=== PATIENT | female | born 1995 | race Caucasian/White ===

== ENCOUNTER 2023-07-15 08:32 | Outpatient (AMB) | payer OTHER, SELFPAY ==
--- NOTE | 2023-07-15 08:34 | A.OFFPC_ITS ---
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 Transferring care from Dr Abdoul Wright ([facility] [place]). Medical records have been requested and have not received. County Program Technician Required: No Log Haul Operator: Not Required per policy Accompanied by: Self / Same As Patient Allergies No Known Allergies Allergy (Verified 07/15/23 09:09) Medication List - Last Reconciled 07/15/23 by Suraj Houston MD albuterol sulfate 90 mcg/actuation 1 inh inhalation BID-TID dulaglutide (Trulicity) 1.5 mg (0.5 mL) subcut QWEEK metformin 500 mg PO BID norethindrone (contraceptive) (Renee) 0.35 mg PO DAILY tretinoin 0.05% 1 appl topical BEDTIME Tobacco use date assessed: 07/15/23 Dental Screening Dental Screen Date: 07/15/23 Did you have a dental visit in the last 12 months?: No Did you have a dental problem in the last 6 months where you did not have access to dental care?: No Was dental information given to patient?: No HPI 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 Patient has relocated from [place], [place] 15 months ago. She gives history of type 2 diabetes which was diagnosed at the age 24. Patient was put on metformin and Trulicity that she has been taking till she ran out a few weeks ago. In addition patient gives history of reactive airway disease and acne. Patient would like to restart all her medications. 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 History of marijuana use and occasional tobacco use. Denies any substance use. [facility] Medical History (Updated 07/15/23 @ 09:14 by Suraj Houston MD) Cystic acne Tobacco use disorder Marijuana use Diabetes mellitus Surgical History History of myomectomy Family History Other Mental health disorder Social History (Updated 07/15/23 @ 08:47 by SADIQ Gonzalez) Housing: House Alcohol intake: current Alcohol intake frequency: a few times a month Patient Tobacco Use Status: Current someday Tobacco user Tobacco use type: Cigarette Cigarettes Per Day: 3 e-Cigarette/Vaping Use: Never Used Second Hand Smoke Exposure: Yes Substance Use Type: Marijuana service: No Current occupational status: employed 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 1. Little interest or pleasure in doing things: nearly every day 2. Feeling down, depressed, or hopeless: several days 3. Trouble falling or staying asleep, or sleeping too much: nearly every day 4. Feeling tired or having little energy: several days 5. Poor appetite or overeating: several days 6. Feeling bad about yourself - or that you are a failure or have let yourself or your family down: several days 7. Trouble concentrating on things, such as reading the newspaper or watching television: more than half the days 8. Moving or speaking so slowly that other people could have noticed. Or the opposite - being so fidgety or restless that you have been moving around a lot more than usual: not at all 9. Thoughts that you would be better off or of hurting yourself in some way: not at all Total score: 12 Depression Screening Interpretation: Positive Depression Screening Follow-up: Existing condition Depression Screening Done: Yes Source: Developed by Drs. Boaz Anderson, Lien Plummer, Pawel Crain and colleagues, with an educational daisy from [employer]. Thrive Questionnaire Date Thrive assessed: 07/15/23 I am a: Patient What is your living situation today?: I have a steady place to live Within the past 12 months, did the food you bought not last and you didn't have the money to get more?: Never true Within the past 12 months, did you worry whether your food would run out before you got money to buy more?: Never true Do you have trouble paying for medicines?: No Do you have trouble getting transportation to medical appointments?: No Do you have trouble paying your heating and electricity bill?: No Do you have trouble taking care of your child, family member or friend?: No Do you have trouble with day-to-day activities such as bathing, preparing meals, shopping, managing finances, etc.?: No Are you currently unemployed and looking for a job?: No Are you interested in more education?: No AUDIT C Alcohol Use Questionnaire (AUDIT-C) 1. How often do you have a drink containing alcohol?: Monthly or less 2. How many drinks containing alcohol do you have on a typical day when you are drinking?: 1 or 2 Total Score: 1 TETO-7 AMB Questionnaire TETO-7 Date TETO - 7 assessed: 07/15/23 Feeling nervous, anxious, or on edge: 1 = Several days Not being able to stop or control worryin = Nearly every day Worrying too much about different things: 3 = Nearly every day Trouble relaxin = More than half the days Being so restless that it is hard to sit still: 0 = Not at all Becoming easily annoyed or irritable: 3 = Nearly every day Feeling afraid as if something awful might happen: 1 = Several days Total TETO-7 score (0-4 normal; 5-9 mild; 10-14 moderate; 15-21 severe): 13 Source: Developed by Drs. Boaz Anderson, Lien Plummer, Pawel Crain and colleagues, with an educational daisy from [employer]. Physical exam (Primary Care) Vital Signs: Last Vital Signs Pulse 92 07/15/23 08:36 BP 130/72 07/15/23 08:51 Pulse Ox 96 07/15/23 08:36 Oxygen Delivery Method Room Air 07/15/23 08:36 BMI result Body Mass Index 30.3 Tobacco/Smoking Status: Tobacco use Status Tobacco use date assessed 07/15/23 07/15/23 08:52 Patient Tobacco Use Status Current someday Tobacco 07/15/23 08:52 Tobacco use type Cigarette 07/15/23 08:52 e-Cigarette/Vaping Use Never Used 07/15/23 08:52 Are you ready to quit: No Tobacco cessation counseling provided: No PHQ-9: PHQ-9 Score PHQ-9: Total score 12 07/15/23 08:52 Depression Screening Interpretation: Positive Depression Screening Follow-up: Existing condition Thrive Assessment: Date of Thrive Assessment Date Thrive assessed 07/15/23 07/15/23 08:52 Const General: cooperative and healthy appearing Nutritional Appearance: well nourished Orientation/consciousness: patient oriented x3 Limitations: no limitations HENMT Head: Yes normal to inspection Eyes General: appearance normal, both eyes and all related structures Neck Neck: Yes normal visual inspection Chest Chest palpation & inspection: normal palpation of entire chest wall Resp Effort & Inspection: normal respiratory effort Neuro General: patient oriented x3 Assessment and Plan Assessment & Plan (1) Diabetes mellitus: Code(s): E11.9 - Type 2 diabetes mellitus without complications Plan: Blood work including A1c has been ordered. Medications including metformin and Trulicity have been reordered. Based on the results, the dosage will be adjuste d. (2) Marijuana use: Code(s): F12.90 - Cannabis use, unspecified, uncomplicated Plan: Patient was advised abstinence. (3) Tobacco use disorder: Code(s): F17.200 - Nicotine dependence, unspecified, uncomplicated (4) Cystic acne: Code(s): L70.0 - Acne vulgaris Plan: Patient uses the control pill and her acne is controlled. The same has been prescribed. Orders: Orders Liver Panel Today E11.9 - Type 2 diabetes mellitus without complications Basic Metabolic Panel Today E11.9 - Type 2 diabetes mellitus without complications Complete Blood Count no Diff Today E11.9 - Type 2 diabetes mellitus without complications Microalbumin, Random (w Creat) Today E11.9 - Type 2 diabetes mellitus without complications UA and rflx microscopic Today E11.9 - Type 2 diabetes mellitus without complications Lipid Panel Today E11.9 - Type 2 diabetes mellitus without complications Hemoglobin A1c Today E11.9 - Type 2 diabetes mellitus without complications Glutamic acid decarboxylase Ab Today E11.9 - Type 2 diabetes mellitus without complications Insulin Auto Antibody Today E11.9 - Type 2 diabetes mellitus without complications Medications: New metformin 500 mg PO BID 180 tabs 1RF albuterol sulfate 90 mcg/actuation 1 inh inhalation BID-TID 8.5 grams 1RF norethindrone (contraceptive) (Renee) 0.35 mg PO DAILY 84 tabs 0RF dulaglutide (Trulicity) 1.5 mg (0.5 mL) subcut QWEEK 2 mL 0RF Coding Level of Care Code New Pt Level 4 (98918) Diagnoses Diabetes mellitus E11.9 Marijuana use F12.90 Tobacco use disorder F17.200 Cystic acne L70.0
[2023-07-15 08:36] VITALS: BP 150/80; PULSE 92; O2SAT 96; BMI 30.3
[2023-07-15 08:51] VITALS: BP 130/72
== END 2023-07-15 09:09 | disposition home or self-care (01) ==
PROVIDERS: PCP Internal Medicine; Visit Provider Internal Medicine
DX: E11.9 Type 2 diabetes mellitus without complications (principal); F12.90 Cannabis use, unspecified, uncomplicated; F17.200 Nicotine dependence, unspecified, uncomplicated; L70.0 Acne vulgaris
CPT/HCPCS: 99204

== ENCOUNTER 2023-07-15 09:15 | Outpatient (REF) | payer OTHER, SELFPAY ==
[2023-07-15 09:55] LABS: Hematocrit 48.1 % (37.0-47.0); Mean Corpuscular HGB Conc 33.3 g/dl (31.0-35.0); Mean Corpuscular Hemoglobin 28.2 pg (27.0-33.0); Mean Corpuscular Volume 84.7 fL (80.0-98.0); Mean Platelet Volume 9.9 fL (9.4-12.3); Platelet Count 432 X10*3/uL (160-400); Red Blood Count 5.68 X10*6/uL (4.20-5.50); Red Cell Distribution Width 12.9 % (11.0-16.0); White Blood Count 8.2 X10*3/uL (4.8-10.8)
[2023-07-15 10:09] LABS: Estimated Average Glucose 318 mg/dL; Hemoglobin A1c % 12.7 % (<6.0)
[2023-07-15 10:24] LABS: Alanine Aminotransferase 33 U/L (0-31); Alkaline Phosphatase 116 U/L (39-117); Anion Gap 13 (12-20); Aspartate Amino Transferase 19 U/L (5-31); Bilirubin Direct 0.1 mg/dL (0.0-0.5); Bilirubin Total 0.3 mg/dL (0.0-1.0); Blood Urea Nitrogen 9 mg/dL (9-16); Calcium 9.8 mg/dL (8.4-10.2); Carbon Dioxide 27 mmol/L (22-29); Chloride 102 mmol/L (96-108); Cholesterol 152 mg/dL (<200); Estimated Glomerular Filt Rate > 60; Glucose Random 267 mg/dL (60-115); HDL Cholesterol 34 mg/dL (>40); LDL Cholesterol Calculated 105 mg/dL (<100); Potassium 3.8 mmol/L (3.3-5.1); Sodium 138 mmol/L (135-145); Total Protein 7.8 g/dL (6.5-8.0); Triglycerides 69 mg/dL (<150)
[2023-07-15 10:27] LABS: Appearance Urine Cloudy; Glucose Urine UA >=1000 mg/dL (Negative); Leukocyte Esterase Urine Trace (Negative); Nitrite Urine Negative (Negative); PH 5.5 (5.0-9.0); Specific Gravity - Urine >= 1.030 (1.005-1.025); UMIC TRIGGER UA YES; Urine Blood Large (3+) (Negative); Urine Ketones Trace mg/dL (Negative); Urine Protein 30 (1+) mg/dL (Neg-Trace)
[2023-07-15 10:28] LABS: Color Urine Dark Yellow
[2023-07-15 10:29] LABS: Bacteria Urine None Seen (None Seen); Hyaline Casts Urine 0-2 /LPF (0-2); RBC Urine >20 /HPF (0-2)
[2023-07-15 11:16] LABS: Microalbum/Creatinine Ratio Ur 35.1 ug/mg cr (<30)
[2023-07-18 18:14] LABS: Glutamic acid decarboxylase Ab <5 IU/mL (<5)
[2023-07-30 02:58] LABS: Insulin Auto Antibody <0.4 U/mL (<0.4)
== END 2023-07-15 09:16 | disposition home or self-care (01) ==
LOC: HO.LAB 09:15
PROVIDERS: PCP Internal Medicine; Visit Provider Internal Medicine
DX: E11.9 Type 2 diabetes mellitus without complications (principal)
CPT/HCPCS: 36415; 80048; 80061; 80076; 81001; 82043; 82570; 83036; 85027; 86337; 86341

== ENCOUNTER 2023-11-03 08:55 | Outpatient (AMB) | payer OTHER, SELFPAY ==
--- NOTE | 2023-11-03 09:10 | MHC.PC.OV ---
Vital Signs 11/03/23 09:11 Height 5 ft 2.5 in Weight 167 lb 2 oz BMI 30.1 BP 122/60 Blood Pressure Location Rt brachial Position Sitting Pulse 88 Pulse Source Pulse Oximeter Pulse Oximetry (%) 97 Oxygen Delivery Method Room Air Intake Visit Reasons: Follow up Intake Note: Patient is here to follow up on DM, Med review. Hair Tinter Required: No Piping Drafter: Not Required per policy Accompanied by: Self / Same As Patient Allergies No Known Allergies Allergy (Verified 11/03/23 09:11) Tobacco use date assessed: 11/03/23 Dental Screening Dental Screen Date: 07/15/23 HPI Follow up HPI Details 28-year-old female returns to the office to discuss her chronic medical conditions. Patient's blood sugar continues to be in the 300 range. She has not checking her blood sugars often. Since last office visit, patient has not fill the Trulicity. She reports there is a general shortage in the area. She has only been taking metformin and that to not regularly. She often forgets the night dosage. Patient gives history of anxiety and depression. She used to be on Zoloft in the past. Would like to see a therapist. [facility] Medical History (Updated 11/03/23 @ 10:03 by Suraj Houston MD) Generalized anxiety disorder Cystic acne Tobacco use disorder Marijuana use Diabetes mellitus Surgical History History of myomectomy Family History Other Mental health disorder Social History (Updated 11/03/23 @ 09:17 by SADIQ Gonzalez) Housing: House Alcohol intake: current Alcohol intake frequency: holidays/special occasions only Patient Tobacco Use Status: Current everyday Tobacco user Tobacco use type: Cigarette Cigarettes Per Day: 3 e-Cigarette/Vaping Use: Never Used Second Hand Smoke Exposure: Yes Substance Use Type: Marijuana service: No Current occupational status: employed 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 needs: No Hearing needs: No Vision needs: Yes (glasses) Questionnaire Thrive Questionnaire Date Thrive assessed: 07/15/23 TETO-7 AMB Questionnaire TETO-7 Date TETO - 7 assessed: 11/03/23 Feeling nervous, anxious, or on edge: 3 = Nearly every day Not being able to stop or control worryin = More than half the days Worrying too much about different things: 2 = More than half the days Trouble relaxin = Nearly every day Being so restless that it is hard to sit still: 0 = Not at all Becoming easily annoyed or irritable: 1 = Several days Feeling afraid as if something awful might happen: 0 = Not at all Total TETO-7 score (0-4 normal; 5-9 mild; 10-14 moderate; 15-21 severe): 11 Source: Developed by Drs. Boaz Anderson, Lien Plummer, Pawel Crain and colleagues, with an educational daisy from [facility]. Physical exam (Primary Care) Vital Signs: Last Vital Signs Pulse 88 11/03/23 09:11 BP 122/60 11/03/23 09:11 Pulse Ox 97 11/03/23 09:11 Oxygen Delivery Method Room Air 11/03/23 09:11 BMI result Body Mass Index 30.1 Tobacco/Smoking Status: Tobacco use Status Tobacco use date assessed 11/03/23 11/03/23 09:19 Patient Tobacco Use Status Current everyday Tobacco 11/03/23 09:19 Tobacco use type Cigarette 11/03/23 09:19 e-Cigarette/Vaping Use Never Used 11/03/23 09:19 Thrive Assessment: Date of Thrive Assessment Date Thrive assessed 07/15/23 11/03/23 09:19 Const General: cooperative and healthy appearing Nutritional Appearance: well nourished Orientation/consciousness: patient oriented x3 Limitations: no limitations HENMT Head: Yes normal to inspection Eyes General: appearance normal, both eyes and all related structures Neck Neck: Yes normal visual inspection Chest Chest palpation & inspection: normal palpation of entire chest wall Resp Effort & Inspection: normal respiratory effort Skin Other: Face: Cystic acne on the center of the forehead. Several erythematous lesion, cystic lesions and some pustular lesions near the chin. Neuro General: patient oriented x3 Results AMB Hemoglobin A1c AMB Hemoglobin A1c 13.3 % Last Edit by SADIQ Gonzalez on 11/03/23 09:22 Results Reviewed Results Reviewed: Laboratory Last Values Hgb A1c (Clinic) 13.3 % (4.0-6.0) H 11/03/23 09:10 Assessment and Plan Assessment & Plan (1) Cystic acne: Code(s): L70.0 - Acne vulgaris Plan: Under normal circumstances, antibiotic and topical treatment would be prescribed. However with new diabetes medications being added today this treatment is deferred. (2) Tobacco use disorder: Code(s): F17.200 - Nicotine dependence, unspecified, uncomplicated Plan: Counseling on plans to quit smoking. (3) Diabetes mellitus: Code(s): E11.9 - Type 2 diabetes mellitus without complications Plan: Patient was encouraged to be more compliant with medications. She is very reluctant to start insulin. A1c is greater than 12. Trulicity is in shortage and not easily available. I increase the metformin dosage to 2 g once a day. Extended release metformin ordered. Jardiance 25 mg added to the regimen. Patient was encouraged to exercise 1 hour a day and follow an ADA diet. (4) Generalized anxiety disorder: Code(s): F41.1 - Generalized anxiety disorder Plan: Community navigator has been contacted for therapy referral. Medication again has been deferred. Will start medications after her blood sugars are under proper control. Orders: Orders AMB Hemoglobin A1c Today E11.9 - Type 2 diabetes mellitus without complications Medications: New metformin ER 2,000 mg (2 x 1,000 mg) PO DAILY 180 tabs 0RF empagliflozin (Jardiance) 25 mg PO DAILY 90 tabs 1RF enalapril maleate 10 mg PO DAILY 90 tabs 1RF Discontinued metformin Discontinued Reason: Doctor's Order 500 mg PO BID 180 tabs 1RF Coding Level of Care Code Est Pt Level 4 (16782) Diagnoses Cystic acne L70.0 Tobacco use disorder F17.200 Diabetes mellitus E11.9 Generalized anxiety disorder F41.1
[2023-11-03 09:11] VITALS: BP 122/60; PULSE 88; O2SAT 97; BMI 30.1
== END 2023-11-03 09:53 | disposition home or self-care (01) ==
PROVIDERS: PCP Internal Medicine; Visit Provider Internal Medicine
DX: L70.0 Acne vulgaris (principal); F17.200 Nicotine dependence, unspecified, uncomplicated; E11.9 Type 2 diabetes mellitus without complications; F41.1 Generalized anxiety disorder
CPT/HCPCS: 83036; 99214

== ENCOUNTER 2023-11-25 09:51 | Outpatient (AMB) | payer OTHER, SELFPAY ==
--- NOTE | 2023-11-25 09:54 | MHC.PC.OV ---
Vital Signs 11/25/23 09:55 Height 5 ft 2.5 in Weight 161 lb 8 oz BMI 29.1 BP 126/74 Blood Pressure Location Lt brachial Position Sitting Pulse 75 Pulse Source Pulse Oximeter Pulse Oximetry (%) 98 Oxygen Delivery Method Room Air Intake Visit Reasons: 1 Month F/U Intake Note: Patient is here to follow up on DM, TETO. 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 Required: No Hot Room Attendant: Not Required per policy Accompanied by: Self / Same As Patient Allergies No Known Allergies Allergy (Verified 11/25/23 10:37) Medication List - Last Reconciled 11/25/23 by Suraj Houston MD albuterol sulfate 90 mcg/actuation 1 inh inhalation BID-TID blood sugar diagnostic ([employer] Ultra Test strips) test once daily blood-glucose meter,continuous (DexTrueLens G7 [employer] Safety And Health Specialist) As directed blood-glucose sensor (Dexcom G7 Sensor device) As directed dulaglutide (Trulicity) 1.5 mg (0.5 mL) subcut QWEEK empagliflozin (Jardiance) 25 mg PO DAILY enalapril maleate 10 mg PO DAILY insulin glargine (Lantus Solostar U-100 Insulin) 10 units (0.1 mL) subcut QPM lancets ([employer]ant PowerTouch UltraSoft 2 Lancet) test once daily metformin ER 2,000 mg (4 x 500 mg) PO DAILY norethindrone (contraceptive) (Renee) 0.35 mg PO DAILY pen needle, diabetic (Comfort EZ Pen [place]) As directed tretinoin 0.025% 1 appl topical BEDTIME Tobacco use date assessed: 11/25/23 Dental Screening Dental Screen Date: 07/15/23 HPI 1 Month F/U HPI Details 28-year-old female presents to the office for a follow-up visit. Since last office visit, patient has not received the continues glucose monitor. Requires an insurance authorization. She brings her blood sugar readings that she has been checking with the traditional way. Her postprandial blood sugar is greater than 200. She also has not received the Trulicity because of the shortage. With the metformin and Jardiance, her blood sugars have come down moderately. [facility] Medical History (Updated 11/03/23 @ 10:03 by Suraj Houston MD) Generalized anxiety disorder Cystic acne Tobacco use disorder Marijuana use Diabetes mellitus Surgical History History of myomectomy Family History Other Mental health disorder Social History Housing: House Alcohol intake: current Alcohol intake frequency: holidays/special occasions only Patient Tobacco Use Status: Current everyday Tobacco user Tobacco use type: Cigarette Cigarettes Per Day: 3 e-Cigarette/Vaping Use: Never Used Second Hand Smoke Exposure: Yes Substance Use Type: Marijuana service: No Current occupational status: employed 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 Boaz Anderson, Lien Plummer, Pawel Crain and colleagues, with an educational daisy from [employer]. Physical exam (Primary Care) Vital Signs: Last Vital Signs Pulse 75 11/25/23 09:55 BP 126/74 11/25/23 09:55 Pulse Ox 98 11/25/23 09:55 Oxygen Delivery Method Room Air 11/25/23 09:55 BMI result Body Mass Index 29.1 Tobacco/Smoking Status: Tobacco use Status Tobacco use date assessed 11/25/23 11/25/23 09:58 Patient Tobacco Use Status Current everyday Tobacco 11/25/23 09:58 Tobacco use type Cigarette 11/25/23 09:58 e-Cigarette/Vaping Use Never Used 11/25/23 09:58 Thrive Assessment: Date of Thrive Assessment Date Thrive assessed 07/15/23 11/25/23 09:58 Const General: cooperative and healthy appearing Nutritional Appearance: well nourished Orientation/consciousness: patient oriented x3 Limitations: no limitations HENMT Head: Yes normal to inspection Eyes General: appearance normal, both eyes and all related structures Neck Neck: Yes normal visual inspection Chest Chest palpation & inspection: normal palpation of entire chest wall Resp Effort & Inspection: normal respiratory effort Neuro General: patient oriented x3 Assessment and Plan Assessment & Plan (1) Diabetes mellitus: Code(s): E11.9 - Type 2 diabetes mellitus without complications Plan: Lantus has been added to the regimen. I have requested the nurse to call the insurance company to authorize her continues glucose monitor. Metformin and Jardiance to be continued at the same dosage. Diabetic teaching has been scheduled. Medications: New insulin glargine (Lantus Solostar U-100 Insulin) 10 units (0.1 mL) subcut QPM 15 mL 0RF pen needle, diabetic (Comfort EZ Pen [place]) As directed 50 ea 0RF Coding Level of Care Code Est Pt Level 4 (76416) Complex EM visit Add On G2211 Diagnoses Diabetes mellitus E11.9
[2023-11-25 09:55] VITALS: BP 126/74; PULSE 75; O2SAT 98; BMI 29.1
== END 2023-11-25 10:35 | disposition home or self-care (01) ==
PROVIDERS: PCP Internal Medicine; Visit Provider Internal Medicine
DX: E11.9 Type 2 diabetes mellitus without complications (principal)
CPT/HCPCS: 99214; G2211

== ENCOUNTER 2024-01-14 14:08 | Outpatient (AMB) | payer OTHER, SELFPAY ==
[2024-01-14 14:19] VITALS: BP 110/76; PULSE 99; O2SAT 97; BMI 28.6
--- NOTE | 2024-01-14 14:19 | A.OFFPC_ITS ---
Vital Signs 01/14/24 14:19 Height 5 ft 2.5 in Weight 159 lb BMI 28.6 BP 110/76 Blood Pressure Location Lt brachial Position Sitting Pulse 99 Pulse Source Pulse Oximeter Pulse Oximetry (%) 97 Oxygen Delivery Method Room Air Intake Visit Reasons: 1mof\u Intake Note: Patient is here to follow up on DM. Computer Hardware Technician Required: No Coat Checker: Not Required per policy Accompanied by: Self / Same As Patient Allergies No Known Allergies Allergy (Verified 01/14/24 14:19) Tobacco use date assessed: 01/14/24 Dental Screening Dental Screen Date: 07/15/23 HPI 1mof\u HPI Details 28-year-old female presents to the [facility] for a follow-up visit. She finally got her continues glucose monitor. Her blood sugars have started improving. Sometimes she has blood sugars greater than 200 in the past 2 weeks. Patient is under a lot of mental stress due to financial and personal issues. Jardiance could not be refilled as patient could not afford the deductible. [facility] Medical History (Updated 11/03/23 @ 10:03 by Suraj Houston MD) Generalized anxiety disorder Cystic acne Tobacco use disorder Marijuana use Diabetes mellitus Surgical History History of myomectomy Family History Other Mental health disorder Social History Housing: House Alcohol intake: current Alcohol intake frequency: holidays/special occasions only Patient Tobacco Use Status: Current everyday Tobacco user Tobacco use type: Cigarette Cigarettes Per Day: 3 e-Cigarette/Vaping Use: Never Used Second Hand Smoke Exposure: Yes Substance Use Type: Marijuana service: No Current occupational status: employed 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 Boaz Anderson, Lien Plummer, Pawel Crain and colleagues, with an educational daisy from [employer]. Physical exam (Primary Care) Vital Signs: Last Vital Signs Pulse 99 01/14/24 14:19 BP 110/76 01/14/24 14:19 Pulse Ox 97 01/14/24 14:19 Oxygen Delivery Method Room Air 01/14/24 14:19 BMI result Body Mass Index 28.6 Tobacco/Smoking Status: Tobacco use Status Tobacco use date assessed 01/14/24 01/14/24 14:24 Patient Tobacco Use Status Current everyday Tobacco 01/14/24 14:24 Tobacco use type Cigarette 01/14/24 14:24 e-Cigarette/Vaping Use Never Used 01/14/24 14:24 Thrive Assessment: Date of Thrive Assessment Date Thrive assessed 07/15/23 01/14/24 14:24 Const General: cooperative and healthy appearing Nutritional Appearance: well nourished Orientation/consciousness: patient oriented x3 Limitations: no limitations HENMT Head: Yes normal to inspection Eyes General: appearance normal, both eyes and all related structures Neck Neck: Yes normal visual inspection Chest Chest palpation & inspection: normal palpation of entire chest wall Resp Effort & Inspection: normal respiratory effort Neuro General: patient oriented x3 Assessment and Plan Assessment & Plan (1) Diabetes mellitus: Code(s): E11.9 - Type 2 diabetes mellitus without complications Plan: Jardiance has been discontinued due to insurance issues. Lantus insulin has been increased to 20 units. I advised the patient to increase the Lantus by another 5 units should her blood sugars be over 200. She could decrease the Lantus back to her baseline of 20 units when the blood sugars less than 200. Patient he is under a lot of stress due to financial and personal issues. Another reason for her elevated sugar. Coding Level of Care Code Est Pt Level 4 (65915) Complex EM visit Add On G2211 Diagnoses Diabetes mellitus E11.9
== END 2024-01-14 14:42 | disposition home or self-care (01) ==
PROVIDERS: PCP Internal Medicine; Visit Provider Internal Medicine
DX: E11.9 Type 2 diabetes mellitus without complications (principal)
CPT/HCPCS: 99214

== ENCOUNTER 2024-04-21 13:46 | Outpatient (AMB) | payer OTHER, SELFPAY ==
--- NOTE | 2024-04-21 13:50 | A.OFFPC_ITS ---
Vital Signs 04/21/24 13:51 Height 5 ft 2.5 in Weight 157 lb 6 oz BMI 28.3 BP 110/68 Blood Pressure Location Lt brachial Position Sitting Pulse 103 H Pulse Source Pulse Oximeter Pulse Oximetry (%) 96 Oxygen Delivery Method Room Air Intake Visit Reasons: 3 Month F/U Intake Note: Patient is here to follow up on DM, TETO. Complaint of left ear pain ongoing for three days. Pt decline flu shot today. Drain Layer Required: No Construction Driver: Not Required per policy Accompanied by: Self / Same As Patient Allergies No Known Allergies Allergy (Verified 04/21/24 13:51) Tobacco use date assessed: 04/21/24 Dental Screening Dental Screen Date: 07/15/23 HPI 3 Month F/U HPI Details 28-year-old female presents [facility] for a follow-up visit. Patient has been continuing the Jardiance in addition to insulin and metformin. The Trulicity has been discontinued. Tolerating the medications well and reporting no side effects. Able to function and do all activities of daily living. Not able to afford the continues glucose monitor and is now using fingersticks. [facility] Medical History (Updated 11/03/23 @ 10:03 by Suraj Houston MD) Generalized anxiety disorder Cystic acne Tobacco use disorder Marijuana use Diabetes mellitus Surgical History History of myomectomy Family History Other Mental health disorder Social History Housing: House Alcohol intake: current Alcohol intake frequency: holidays/special occasions only Patient Tobacco Use Status: Current everyday Tobacco user Tobacco use type: Cigarette Cigarette Packs Per Day: 0.25 Cigarettes Per Day: 3 e-Cigarette/Vaping Use: Never Used Second Hand Smoke Exposure: Yes Substance Use Type: Marijuana service: No Current occupational status: employed 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 How many drinks containing alcohol do you have on a typical day when you are drinking?: 1 or 2 3. How often do you have six or more drinks on one occasion?: Never Total Score: 0 TETO-7 AMB Questionnaire TETO-7 Date TETO - 7 assessed: 11/03/23 Source: Developed by Drs. Boaz Anderson, Lien Plummer, Pawel Crain and colleagues, with an educational daisy from [employer]. Physical exam (Primary Care) Vital Signs: Last Vital Signs Pulse 103 H 04/21/24 13:51 BP 110/68 04/21/24 13:51 Pulse Ox 96 04/21/24 13:51 Oxygen Delivery Method Room Air 04/21/24 13:51 BMI result Body Mass Index 28.3 Tobacco/Smoking Status: Tobacco use Status Tobacco use date assessed 04/21/24 04/21/24 13:58 Patient Tobacco Use Status Current everyday Tobacco 04/21/24 13:58 Tobacco use type Cigarette 04/21/24 13:58 e-Cigarette/Vaping Use Never Used 04/21/24 13:58 Thrive Assessment: Date of Thrive Assessment Date Thrive assessed 07/15/23 04/21/24 13:58 Const General: cooperative and healthy appearing Nutritional Appearance: well nourished Orientation/consciousness: patient oriented x3 Limitations: no limitations HENMT Head: Yes normal to inspection Eyes General: appearance normal, both eyes and all related structures Neck Neck: Yes normal visual inspection Chest Chest palpation & inspection: normal palpation of entire chest wall Resp Effort & Inspection: normal respiratory effort Neuro General: patient oriented x3 Results AMB Hemoglobin A1c AMB Hemoglobin A1c 6.3 % Last Edit by SADIQ Gonzalez on 04/21/24 14:06 Results Reviewed Results Reviewed: Laboratory Last Values Hgb A1c (Clinic) 6.3 % (4.0-6.0) H 04/21/24 13:50 Coding Level of Care Code Est Pt Level 4 (36247) Complex EM visit Add On G2211 Diagnoses Generalized anxiety disorder F41.1 Diabetes mellitus E11.9 Assessment & Plan Assessment & Plan (1) Generalized anxiety disorder: Code(s): F41.1 - Generalized anxiety disorder Category: Medical Plan: Continue current medications. (2) Diabetes mellitus: Code(s): E11.9 - Type 2 diabetes mellitus without complications Category: Medical Plan: A1c has improved significantly. Continue medications at same dosage. Orders: Orders Basic Metabolic Panel Today E11.9 - Type 2 diabetes mellitus without complications, F41.1 - Generalized anxiety disorder Liver Panel Today E11.9 - Type 2 diabetes mellitus without complications, F41.1 - Generalized anxiety disorder Thyroid Stimulating Hormone Today E11.9 - Type 2 diabetes mellitus without complications, F41.1 - Generalized anxiety disorder UA and rflx microscopic Today E11.9 - Type 2 diabetes mellitus without complications, F41.1 - Generalized anxiety disorder Complete Blood Count no Diff Today E11.9 - Type 2 diabetes mellitus without complications, F41.1 - Generalized anxiety disorder AMB Hemoglobin A1c Today E11.9 - Type 2 diabetes mellitus without complications Lipid Panel Today E11.9 - Type 2 diabetes mellitus without complications, F41.1 - Generalized anxiety disorder Medications: Refilled albuterol sulfate 90 mcg/actuation 1 inh inhalation BID-TID 8.5 grams 1RF Discontinued dulaglutide (Trulicity) Discontinued Reason: Doctor's Order 1.5 mg (0.5 mL) subcut QWEEK 2 mL 0RF
[2024-04-21 13:51] VITALS: BP 110/68; PULSE 103; O2SAT 96; BMI 28.3
== END 2024-04-21 14:19 | disposition home or self-care (01) ==
PROVIDERS: PCP Internal Medicine; Visit Provider Internal Medicine
DX: F41.1 Generalized anxiety disorder (principal); E11.9 Type 2 diabetes mellitus without complications

== ENCOUNTER → 2024-04-21 13:46 | Outpatient (BNVA) | payer OTHER, SELFPAY | PROVIDERS: PCP Internal Medicine; Visit Provider Internal Medicine | DX: F41.1 Generalized anxiety disorder (principal); E11.9 Type 2 diabetes mellitus without complications; Z79.4 Long term (current) use of insulin | CPT/HCPCS: 83036 ==

== ENCOUNTER 2024-04-26 07:47 | Outpatient (REF) | payer OTHER, SELFPAY ==
[2024-04-26 08:32] LABS: Appearance Urine Cloudy; Color Urine Yellow; Glucose Urine UA >=1000 mg/dL (Negative); Leukocyte Esterase Urine Negative (Negative); Nitrite Urine Negative (Negative); PH 5.5 (5.0-9.0); Specific Gravity - Urine >= 1.030 (1.005-1.025); UMIC TRIGGER UA YES; Urine Blood Negative (Negative); Urine Ketones >=160 mg/dL (Negative); Urine Protein 30 (1+) mg/dL (Neg-Trace)
[2024-04-26 08:34] LABS: Hematocrit 51.4 % (37.0-47.0); Hemoglobin 16.7 g/dl (12.0-16.0); Mean Corpuscular HGB Conc 32.5 g/dl (31.0-35.0); Mean Corpuscular Hemoglobin 27.5 pg (27.0-33.0); Mean Corpuscular Volume 84.7 fL (80.0-98.0); Mean Platelet Volume 9.1 fL (9.4-12.3); Platelet Count 482 X10*3/uL (160-400); Red Blood Count 6.07 X10*6/uL (4.20-5.50); Red Cell Distribution Width 13.8 % (11.0-16.0); White Blood Count 11.8 X10*3/uL (4.8-10.8)
[2024-04-26 08:48] LABS: Bacteria Urine 1+ (None Seen); RBC Urine 0-2 /HPF (0-2); Squamous Epithelial Cell Urine >20 /HPF (0-2)
[2024-04-26 09:29] LABS: Alanine Aminotransferase 11 U/L (0-31); Albumin Level 4.3 g/dL (3.5-5.0); Alkaline Phosphatase 83 U/L (39-117); Anion Gap 18 (12-20); Aspartate Amino Transferase 25 U/L (5-31); Bilirubin Direct 0.2 mg/dL (0.0-0.5); Bilirubin Total 0.6 mg/dL (0.0-1.0); Blood Urea Nitrogen 13 mg/dL (9-16); Calcium 9.6 mg/dL (8.4-10.2); Carbon Dioxide 17 mmol/L (22-29); Chloride 108 mmol/L (96-108); Cholesterol 216 mg/dL (<200); Estimated Glomerular Filt Rate > 60; Glucose Random 80 mg/dL (60-115); HDL Cholesterol 42 mg/dL (>40); LDL Cholesterol Calculated 148 mg/dL (<100); Sodium 139 mmol/L (135-145); Total Protein 8.1 g/dL (6.5-8.0); Triglycerides 134 mg/dL (<150)
[2024-04-26 09:47] LABS: Thyroid Stimulating Hormone 0.58 uIU/mL (0.32-4.0)
== END 2024-04-26 07:48 | disposition home or self-care (01) ==
LOC: HO.LAB 07:47
PROVIDERS: PCP Internal Medicine; Visit Provider Internal Medicine
DX: F41.1 Generalized anxiety disorder (principal); E11.9 Type 2 diabetes mellitus without complications
CPT/HCPCS: 36415; 80048; 80061; 80076; 81001; 84443; 85027

== ENCOUNTER 2024-09-01 10:09 | Outpatient (REF) | payer OTHER, SELFPAY ==
[2024-09-01 12:30] LABS: Appearance Urine Clear; Color Urine Yellow; Glucose Urine UA Negative (Negative); Leukocyte Esterase Urine Negative (Negative); Nitrite Urine Negative (Negative); PH 6.5 (5.0-9.0); UMIC TRIGGER UA YES; Urine Blood Moderate (2+) (Negative); Urine Ketones Negative (Negative); Urine Protein Negative (Neg-Trace)
[2024-09-01 12:36] LABS: Estimated Average Glucose 143 mg/dL; Hemoglobin A1c % 6.6 % (<6.0)
[2024-09-01 12:38] LABS: Bacteria Urine None Seen (None Seen); Hyaline Casts Urine 0-2 /LPF (0-2); RBC Urine >20 /HPF (0-2); Squamous Epithelial Cell Urine 0-2 /HPF (0-2); WBC Urine 0-5 /HPF (0-5)
[2024-09-01 13:00] LABS: Alanine Aminotransferase 10 U/L (0-31); Albumin Level 3.9 g/dL (3.5-5.0); Alkaline Phosphatase 97 U/L (39-117); Anion Gap 11 (12-20); Aspartate Amino Transferase 17 U/L (5-31); Bilirubin Direct < 0.2 mg/dL (0.0-0.5); Bilirubin Total 0.2 mg/dL (0.0-1.0); Blood Urea Nitrogen 12 mg/dL (9-16); Calcium 9.2 mg/dL (8.4-10.2); Carbon Dioxide 24 mmol/L (22-29); Chloride 108 mmol/L (96-108); Cholesterol 183 mg/dL (<200); Estimated Glomerular Filt Rate > 60; Glucose Random 101 mg/dL (60-115); HDL Cholesterol 51 mg/dL (>40); LDL Cholesterol Calculated 113 mg/dL (<100); Potassium 3.8 mmol/L (3.3-5.1); Sodium 139 mmol/L (135-145); Total Protein 7.8 g/dL (6.5-8.0); Triglycerides 95 mg/dL (<150)
[2024-09-01 13:16] LABS: Thyroid Stimulating Hormone 0.83 uIU/mL (0.32-4.0)
--- OUTSIDE RECORDS SUMMARY | 2024-09-01 13:29 | XMS_ITS | Clinical Summary ---
Author Organization [facility] Address [address] [place] [id number] Care Team Providers Care Wringer Machine Operator Name Role Phone Juan Murphy MD Primary [...] of Treatment Not on file Care Teams Wringer Machine Operator Relationship Specialty Start Date End Date Juan Murphy MD PCP - General 05/16/17
--- OUTSIDE RECORDS SUMMARY | 2024-09-01 13:29 | XMS_ITS | Clinical Summary ---
Author Organization [facility] Address [address] [place] [id number] Phone Care Team Providers Care Restaurant Front Manager Name Role Phone Ruthann Wright MD Primary Care Provider [phone] Allergies No known active allergies Medications Medication [...] Medical Devices Not on file Care Teams Restaurant Front Manager Relationship Specialty Start Date End Date Ruthann Wright MD [address] [place] [address] PCP - General 06/18/21 Additional Source Comments The information contained in this document represents components of the legal health record. It is not the complete legal health record.[facility]
[2024-09-01 14:45] LABS: Creatinine Urine 56.38 mg/dL; Microalbumin Urine < 5.0 mg/L
== END 2024-09-01 10:10 | disposition home or self-care (01) ==
LOC: HO.LAB 10:09
PROVIDERS: PCP Internal Medicine; Visit Provider Internal Medicine
DX: E11.9 Type 2 diabetes mellitus without complications (principal)
CPT/HCPCS: 36415; 80048; 80061; 80076; 81001; 82043; 82570; 83036; 84443

== ENCOUNTER 2024-09-01 10:09 | Outpatient (AMB) | payer OTHER, SELFPAY ==
--- NOTE | 2024-09-01 10:21 | MHC.PC.OV ---
Vital Signs 09/01/24 10:24 Height 5 ft 2.5 in Weight 157 lb 8 oz BMI 28.3 BP 100/68 Blood Pressure Location Lt brachial Position Sitting Pulse 100 Pulse Source Pulse Oximeter Temp 97.1 F Temp Source Temporal Artery Scan Pulse Oximetry (%) 96 Oxygen Delivery Method Room Air Intake Visit Reasons: 3mth f/u Intake Note: Patient is here to follow up on DM. Research And Development Scientist Required: No Staffing Mgr: Not Required per policy Accompanied by: Self / Same As Patient Allergies No Known Allergies Allergy (Verified 09/01/24 10:24) Tobacco use date assessed: 09/01/24 Dental Screening Dental Screen Date: 09/01/24 Did you have a dental visit in the last 12 months?: No Did you have a dental problem in the last 6 months where you did not have access to dental care?: No Was dental information given to patient?: No [facility] Medical History (Updated 11/03/23 @ 10:03 by Suraj Houston MD) Generalized anxiety disorder Cystic acne Tobacco use disorder Marijuana use Diabetes mellitus Surgical History History of myomectomy Family History Other Mental health disorder Social History (Updated 09/01/24 @ 10:29 by SADIQ Gonzalez) Housing: House Alcohol intake: current Alcohol intake frequency: holidays/special occasions only Patient Tobacco Use Status: Current everyday Tobacco user Tobacco use type: Cigarette Cigarette Packs Per Day: 0.25 Cigarettes Per Day: 2 e-Cigarette/Vaping Use: Never Used Second Hand Smoke Exposure: Yes Substance Use Type: Marijuana service: No Current occupational status: employed 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 1. Little interest or pleasure in doing things: not at all 2. Feeling down, depressed, or hopeless: not at all 3. Trouble falling or staying asleep, or sleeping too much: not at all 4. Feeling tired or having little energy: not at all 5. Poor appetite or overeating: not at all 6. Feeling bad about yourself - or that you are a failure or have let yourself or your family down: not at all 7. Trouble concentrating on things, such as reading the newspaper or watching television: not at all 8. Moving or speaking so slowly that other people could have noticed. Or the opposite - being so fidgety or restless that you have been moving around a lot more than usual: not at all 9. Thoughts that you would be better off or of hurting yourself in some way: not at all Total score: 0 Depression Screening Interpretation: Negative Depression Screening Done: Yes Source: Developed by Drs. Boaz Anderson, Lien Plummer, Pawel Crain and colleagues, with an educational daisy from [employer]. Thrive Questionnaire Date Thrive assessed: 09/01/24 I am a: Patient What is your living situation today?: I have a steady place to live Within the past 12 months, did the food you bought not last and you didn't have the money to get more?: Never true Within the past 12 months, did you worry whether your food would run out before you got money to buy more?: Never true Do you have trouble paying for medicines?: No Do you have trouble getting transportation to medical appointments?: No Do you have trouble paying your heating and electricity bill?: No Do you have trouble taking care of your child, family member or friend?: No Do you have trouble with day-to-day activities such as bathing, preparing meals, shopping, managing finances, etc.?: No Are you currently unemployed and looking for a job?: No Are you interested in more education?: No Please select the resources that you would like help with: None Currently or been in a relationship where the following occur: No concerns reported THRIVE Score: 0 AUDIT C Alcohol Use Questionnaire (AUDIT-C) 2. How many drinks containing alcohol do you have on a typical day when you are drinking?: 1 or 2 3. How often do you have six or more drinks on one occasion?: Never Total Score: 0 TETO-7 AMB Questionnaire TETO-7 Date TETO - 7 assessed: 09/01/24 Feeling nervous, anxious, or on edge: 0 = Not at all Not being able to stop or control worryin = Not at all Worrying too much about different things: 0 = Not at all Trouble relaxin = Not at all Being so restless that it is hard to sit still: 0 = Not at all Becoming easily annoyed or irritable: 0 = Not at all Feeling afraid as if something awful might happen: 0 = Not at all Total TETO-7 score (0-4 normal; 5-9 mild; 10-14 moderate; 15-21 severe): 0 Source: Developed by Drs. Boaz Anderson, Lien Plummer, Pawel Crain and colleagues, with an educational daisy from [employer]. Physical exam (Primary Care) Vital Signs: Last Vital Signs Temp 97.1 F 09/01/24 10:24 Pulse 100 09/01/24 10:24 BP 100/68 09/01/24 10:24 Pulse Ox 96 09/01/24 10:24 Oxygen Delivery Method Room Air 09/01/24 10:24 BMI result Body Mass Index 28.3 Tobacco/Smoking Status: Tobacco use Status Tobacco use date assessed 09/01/24 09/01/24 10:28 Patient Tobacco Use Status Current everyday Tobacco 09/01/24 10:29 Tobacco use type Cigarette 09/01/24 10:29 e-Cigarette/Vaping Use Never Used 09/01/24 10:29 PHQ-9: PHQ-9 Score PHQ-9: Total score 0 09/01/24 10:28 Depression Screening Interpretation: Negative Thrive Assessment: Date of Thrive Assessment Date Thrive assessed 09/01/24 09/01/24 10:28 Currently or been in a relationship where the following occur: No concerns reported Results AMB Hemoglobin A1c AMB Hemoglobin A1c 6.7 % Last Edit by SADIQ Gonzalez on 09/01/24 10:34 Results Reviewed Results Reviewed: Laboratory Last Values Hgb A1c (Clinic) 6.7 % (4.0-6.0) H 09/01/24 10:21 Coding Level of Care Code Est Pt Level 4 (06306) Complex EM visit Add On G2211 Diagnoses Diabetes mellitus E11.9 Assessment & Plan Assessment & Plan (1) Diabetes mellitus: Code(s): E11.9 - Type 2 diabetes mellitus without complications Category: Medical Plan: Metformin has been reduced to once a day due to patient preference. Lantus insulin has been increased to 20 units a day. Plan History of Present Illness The patient is a 29-year-old female presenting for adjustments in her diabetes management and inquiries into emerging fatigue and numbness symptoms. Following an episode of diabetic ketoacidosis linked to a dental procedure, she was discharged with instructions to continue insulin glargine and metformin, alongside monitoring her glycemic levels closely. Her glycemic control, particularly morning fasting glucose, remains higher than desired. Trials of higher doses of metformin resulted in gastrointestinal discomfort, limiting her dose to one tablet of metformin per day. Recently, she experienced excessive tiredness unrelated to significant changes in her sleep schedule, prompting concerns about anemia, especially considering a history of observations at the hospital regarding low hemoglobin levels. Concurrently, the manifestation of numbness in the heel is a new development. She remains compliant with most aspects of her diabetes regimen but reports difficulties balancing her dietary habits amid stress. 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 - Smoking: Approximately two cigarettes per day, mainly in the car. - Weight fluctuation: Recent weight reduction followed by subsequent gain. - Current weight management and dietary habits discussed. Review of Systems - Neurological: Reports numbness in the heel, especially with extended walking. - General: Reports fatigue despite adequate sleep. - Endocrine: Denies changes in thyroid function not already addressed. Physical Exam General: Appearance normal, both eyes and all related structures Nutritional Appearance: Well nourished Orientation/consciousness: Patient oriented x3 Limitations: No limitations Head: Normal to inspection Neck: Normal visual inspection Chest: Normal palpation of entire chest wall Respiratory: Normal respiratory effort Neurology: Patient oriented x3, reports numbness in heel Results - Labs: Recent A1c measurement at 6.4%, hyperlipidemia noted. - Tests to be ordered: Blood work to assess anemia and thyroid function. Plan Adjustments to the diabetes management plan will involve an increase in insulin glargine dosage with ongoing monitoring of blood glucose levels. Blood tests to evaluate the potential anemia and thyroid function will be conducted to address her fatigue. The numbness in the heel will be monitored for changes related potentially to diabetic neuropathy. Present hyperlipidemia does not require immediate statin intervention. The discussion of smoking cessation continues as part of her lifestyle changes. A follow-up in three months is proposed for further evaluation and management. Patient was informed and verbally consented to the use of an ambient scribe for clinic note documentation during this visit. Discussion Notes I discussed with the patient the need to increase insulin glargine to better manage her elevated blood glucose levels, with recommendations to adjust slowly to 20 units. We will conduct blood tests to assess anemia and thyroid function as possible contributors to her fatigue and discussed the potential of diabetic neuropathy contributing to heel numbness. The patient expressed understanding and agreed with monitoring the symptoms and initiating lab work. I provided guidance on managing nicotine dependence and weight. The risks and benefits of statin therapy were discussed, particularly considering her potential plans for . The patient was advised to follow up in three months unless symptoms necessitate an earlier appointment. Patient Instructions - Increase insulin glargine gradually to a total of 20 units as instructed. - Undergo blood tests for thyroid function and anemia evaluation. - Monitor heel numbness for any progression in symptoms. - Continue to make lifestyle adjustments to manage stress and diet. - Limit smoking to no more than two cigarettes daily. - Keep track of blood glucose and ensure consistent medication adherence. - Schedule follow-up in three months or sooner if symptoms worsen. Orders: Orders Basic Metabolic Panel Today E11.9 - Type 2 diabetes mellitus without complications Thyroid Stimulating Hormone Today E11.9 - Type 2 diabetes mellitus without complications Hemoglobin A1c Today E11.9 - Type 2 diabetes mellitus without complications UA and rflx microscopic Today E11.9 - Type 2 diabetes mellitus without complications AMB Hemoglobin A1c Today E11.9 - Type 2 diabetes mellitus without complications Lipid Panel Today E11.9 - Type 2 diabetes mellitus without complications Liver Panel Today E11.9 - Type 2 diabetes mellitus without complications Microalbumin, Random (w Creat) Today E11.9 - Type 2 diabetes mellitus without complications
[2024-09-01 10:24] VITALS: BP 100/68; PULSE 100; TEMP 36.2; O2SAT 96; BMI 28.3
--- OUTSIDE RECORDS SUMMARY | 2024-09-01 11:54 | XMS_ITS | Clinical Summary ---
Author Organization [facility] Address [address] [place] [id number] Phone Care Team Providers Care Logging Engineer Name Role Phone Ruthann Wright MD Primary Care Provider [phone] Allergies No known active allergies Medications Medication Sig Dispensed Refills Start Date End Date Status metFORMIN (GLUCOPHAGE) 500 MG tablet Take 500 mg by mouth 2 (two) times a day with meals. Active dulaglutide (TRULICITY) 1.5 mg/0.5 mL subcutaneous injection Inject 1.5 mg under the skin every 7 days. Active sertraline (ZOLOFT) 50 MG tablet Take 50 mg by mouth daily. Active norethindrone (MICRONOR) 0.35 mg tablet Take 1 tablet by mouth daily. Active Active Problems No known active problems Social History Tobacco Use Types Packs/Day Years Used Date Smoking Tobacco: Never Assessed Education Answer Date Recorded Are you interested in more education? Not on josey e 10/25/2022 Are you concerned about learning? Not on file 10/25/2022 No 10/25/2022 No 10/25/2022 Digital Access Answer Date Recorded No 11/21/2022 No 11/21/2022 No 11/21/2022 Reliable internet access at home? Not on file 11/21/2022 Device with a working camera? Not on file Sex and Gender Information Value Date Recorded Sex Assigned at Not on file Gender Identity Not on file Sexual Orientation Not on file Last Filed Vital Signs Vital Sign Reading Time Taken Comments Blood Pressure 120/78 06/18/2021 9:17 AM EST Pulse 102 06/18/2021 9:17 AM EST Temperature 36.7 ??C (98 ??F) 06/18/2021 9:17 AM EST Respiratory Rate - - Oxygen Saturation 98% 06/18/2021 9:17 AM EST Inhaled Oxygen Concentration - - Weight - - Height - - Body Mass Index - - Plan of Treatment Health Maintenance Due Date Last Done Comments Adult Td,Tdap Booster 1993 CREATININE LEVEL 1993 DEPRESSION SCREENING 2005 SMOKING Hx and SMOKELESS TOB ACCO SCREENING 2006 HEPATITIS B SCREENING 2011 HEPATITIS C SCREENING 2011 HIV ONE-TIME SCREENING (18-6 5 YEARS) 2011 HEPATITIS B VACCINES (1 of 3 - 19+ 3-dose series) 2012 PAP SMEAR 2014 INFLUENZA VACCINE (#1) 2024 COVID-19 VACCINE ( - 2023-2 5 season) 2024 HEPATITIS A VACCINES Aged Out No long er eligible based on patient's age to complete this topic HIB VACCINES Aged Out No longer eligi ble based on patient's age to complete this topic MENINGOCOCCAL VACCINES (ACWY) Aged Out No longer eligible based on patient's age to complete this topic PNEUMOCOCCAL VACCINES (0-49 years) Aged Out No longer eligible based on patient's age to complete this topic Medical Devices Not on file Care Teams Logging Engineer Relationship Specialty Start Date End Date Ruthann Wright MD [address] [place] [address] PCP - General 06/18/21 Additional Source Comments The information contained in this document represents components of the legal health record. It is not the complete legal health record.[facility]
--- OUTSIDE RECORDS SUMMARY | 2024-09-01 11:54 | XMS_ITS | Clinical Summary ---
Author Organization [facility] Address [address] [place] [id number] Care Team Providers Care Improvement Rn Name Role Phone Juan Murphy MD Primary Care Provider Kimberly labsamuel Allergies No known active allergies Medications levonorgestrel (MIRENA) 20 mcg/24 hr (5 years) IUD 1 each by Intrauterine route once. Active cholecalciferol , vitamin D3, 5,000 unit capsule Take 5,000 Units by mouth daily. Active ferrous sulfate 325 (65 FE) MG tablet Take 325 mg by mouth daily with breakfast. Active Immunizations Name Administration Dates Next Due PPD Test 12/11/2011 Family History Medical History Relation Comments Diabetes Father Hypertension Father Diabetes Maternal Grandfather Cancer Maternal Grandmother Diabetes Maternal Grandmother Osteoporosis Maternal Grandmother Relation Status Comments Brother 1 brother health y Father Alive Maternal Grandfather Maternal Grandmother Alive Mother Alive Paternal Grandfather unknown hea lth history Paternal Grandmother unknown hea lth history Sister 1 sister healthy Social History Tobacco Use Types Packs/Day Years Used Date Smoking Tobacco: Never Alcohol Use Standard Drinks/Week Comments Yes 0 (1 standard drink = 0.6 oz pur e alcohol) 1-2 servings per week Comments Unknown Sex and Gender Information Value Date Recorded Sex Assigned at Not on file Legal Sex Female 10:03 AM EST Gender Identity Not on file Sexual Orientation Not on file Plan of Treatment Not on file Care Teams Improvement Rn Relationship Specialty Start Date End Date Juan Murphy MD PCP - General 05/16/17
== END 2024-09-01 10:57 | disposition home or self-care (01) ==
PROVIDERS: PCP Internal Medicine; Visit Provider Internal Medicine
DX: E11.9 Type 2 diabetes mellitus without complications (principal)